=== PATIENT | female | born 1990 | race Hispanic/Latino ===

== ENCOUNTER → 2025-09-05 09:21 | Outpatient (REF) | payer OTHER, SELFPAY ==
[2025-09-05 16:07] LABS: Mumps Virus IgG Negative; Varicella Zoster IgG (VZV) Positive
== END ==
LOC: OHS 09:21
PROVIDERS: ATTENDING PHYSICIAN Nurse Practitioner Family
DX: Z23 Encounter for immunization (principal)
CPT/HCPCS: 36415; 86480; 86735; 86762; 86765; 86787